=== PATIENT | female | born 2000 | race Caucasian/White ===

== ENCOUNTER → 2023-07-26 | Outpatient (CLI) | payer SELFPAY ==
--- NOTE | 2023-07-26 14:26 | US_ITS ---
STUDY: ULTRASOUND OF THE FEMALE PELVIS - COMPLETE REASON FOR EXAM: Female, 22 years old. LLQ PAIN x 3 weeks LMP: July 21, 2023. TECHNIQUE: Transabdominal TECHNICAL QUALITY: Adequate. COMPARISON: None. FINDINGS: The uterus is retroverted and is in a midline position. The uterus measures 7.8 cm x 7.3 cm x 5.3 cm. Normal uterine cervix. The endometrium measures 7.5 mm in thickness, and is hyperechoic. There is no demonstrated endometrial mass. There is no demonstrated myometrial mass. I.U.D. - The patient does not have an I.U.D. The right ovary is visualized. The right ovary measures 3.6 cm x 3 cm x 1.8 cm. There is no right ovarian cyst or ovarian mass. There is no visualized right adnexal mass or complex lesion. There is normal arterial and normal venous vascularity. The left ovary is visualized. The left ovary is enlarged and measures 7.9 cm x 7.5 cm x 4.6 cm. There is a 6.2 cm x 6 cm x 3.8 cm cyst in the left ovary. There is no visualized left adnexal mass or complex lesion. There is normal arterial and normal venous vascularity. There is no fluid in the cul-de-sac. The pre void volume of the bladder was 805 ml. US/Pelvic (Non ) IMPRESSION: 6.2 cm x 6 cm x 3.8 cm cyst in the left ovary. Electronically Signed: Jaron Javier MD at 15:23 EDT ,
== END | disposition home or self-care (01) ==
PROVIDERS: PCP Family Medicine; Referring Provider Family Medicine; Visit Provider Family Medicine
DX: R10.2 Pelvic and perineal pain (principal)
CPT/HCPCS: 76856